=== PATIENT | female | born 1990 ===

== ENCOUNTER 2021-10-02 21:58 | Emergency (ER) | payer SELFPAY ==
[~2021-10-02] VITALS: Ht 162.6 cm; Wt 63.6 kg
[2021-10-02 22:19] VITALS: BP 130/82
== END 2021-10-02 23:04 | disposition home or self-care (01) ==
LOC: ER 21:59
DX: Z77.21 Contact with and (suspected) exposure to potentially hazardous body fluids (principal)
CPT/HCPCS: 99281